=== PATIENT | female | born 1985 | race Caucasian/White ===

== ENCOUNTER 2020-08-15 01:09 | Emergency (ER) | payer MEDICAID ==
[~2020-08-15] VITALS: Ht 170.2 cm; Wt 151.5 kg
[2020-08-15 01:25] VITALS: BP 145/100
--- NOTE | 2020-08-15 02:04 | NUR ---
PT TAKEN TO BED 9
--- NOTE | 2020-08-15 02:15 | NUR ---
34 Y/O FEMALE PRESENTED TO ED C/O LOWER BACK PAIN & PAINFUL URINATION X 3 DAYS. PT STATES SHE HAS A HX OF KIDNEY STONES AND THIS PAIN IS THE SAME. PT STATES PAIN STARTED X 3 DAYS AGO BUT HAS BEEN GETTING PROGRESSIVELY WORSE. PT C/O OF PAINFUL URINATION - STATES ITS NOT A BURNING SENSATION BUT JUST PAINFUL. PT DENIES HEMATURIA , VOMITING , DIARRHEA, BODY ACHES AND CHILLS. PT ABD ROUND, SOFT AND NONTENDER. A/O X4. RR EVEN AND UNLABORED. VSS. NO ACUTE DISTRESS NOTED AT THIS TIME. ERMD MADE AWARE OF PT STATUS. PMH: KIDNEY STONE NKA
--- NOTE | 2020-08-15 02:20 | NUR ---
ERMD AT BEDSIDE FOR MEDICAL EVALUATION
--- NOTE | 2020-08-15 02:29 | NUR ---
URINE SAMPLE COLLECTED AND WALKED TO LAB.
[2020-08-15] MEDS ORDERED: KETOROLAC 60 MG/2 ML VIAL IM ONE (02:30)
[2020-08-15] MEDS ORDERED: cefTRIAXone 1,000 MG in LIDOCAINE MPF 1% 2.1 ML IM ONE (02:30)
--- NOTE | 2020-08-15 02:34 | NUR ---
PT TAKEN TO CT VIA W/C
[2020-08-15] MEDS ORDERED: LIDOCAINE MPF 1% 5 ML ONE (02:49)
[2020-08-15] MEDS ORDERED: cefTRIAXone 1,000 MG VIAL ONE (02:49)
[2020-08-15] MEDS ORDERED: ONDANSETRON 4 MG/2 ML VIAL IVP ONE (02:55)
[2020-08-15] MEDS ORDERED: NACL 0.9% 500 ML IV ONE (02:55)
--- NOTE | 2020-08-15 03:06 | NUR ---
22G IV PLACED IN LT HAND - BLOOD LABS COLLECTED AND HANDED TO LAB. Addendum: 08/15/20 at 0549 by JAYESH 22G IV PLACED IN RT HAND - BLOOD LABS COLLECTED AND HANDED TO LAB.
[2020-08-15 03:14] LABS: BASOPHILS # (AUTO) 0.1 K/uL (0.00-0.22); BASOPHILS % (AUTO) 0.7 % (0.0-2.0); EOSINOPHILS # (AUTO) 0.3 K/uL (0-0.4); EOSINOPHILS % (AUTO) 2.8 % (0.0-4.0); HEMATOCRIT 40.8 % (36-48); HEMOGLOBIN 13.5 g/dL (12.0-16.0); LYMPHOCYTES # (AUTO) 2.2 K/uL (2.5-16.5); LYMPHOCYTES % (AUTO) 21.7 % (20.5-51.1); MEAN CORPUSCULAR HEMOGLOBIN 28 pg (27-31); MEAN CORPUSCULAR HGB CONC 33 g/dL (33-37); MEAN CORPUSCULAR VOLUME 85.4 fL (80-94); MONOCYTES # (AUTO) 0.6 K/uL (0.8-1.0); MONOCYTES % (AUTO) 5.5 % (1.7-9.3); NEUTROPHILS % (AUTO) 69.3 % (42.2-75.2); PLATELET COUNT (AUTO) 300 K/uL (140-450); RED BLOOD CELL COUNT(AUTO) 4.77 MIL/uL (4.20-5.40); RED CELL DISTRIBUTION WIDTH 14.2 % (11.6-13.7); WHITE BLOOD COUNT (AUTO) 10.1 K/uL (4.8-10.8)
[2020-08-15 03:31] LABS: PROTHROMBIN TIME 9.5 secs (10.8-13.4)
[2020-08-15 03:36] LABS: ALBUMIN 3.4 g/dL (3.4-5.0); POTASSIUM 3.7 mmol/L (3.5-5.1); TOTAL BILIRUBIN 0.3 mg/dL (0.0-1.0)
[2020-08-15] MEDS ORDERED: MORPHINE SULFATE 2 MG/ML SYR IVP ONE (03:40)
[2020-08-15 03:42] LABS: ANION GAP 13.6 (8-16); CARBON DIOXIDE 27.1 mmol/L (21-32)
--- NOTE | 2020-08-15 03:45 | NUR ---
ERMD AT BEDSIDE FOR MEDICAL EVALUATION
--- NOTE | 2020-08-15 04:02 | NUR ---
yovani carlson swab collected
--- NOTE | 2020-08-15 04:07 | NUR ---
covid swab walked over to lab
[2020-08-15 04:19] LABS: APPEARANCE,URINE CLOUDY (CLEAR); BILIRUBIN,URINE NEGATIVE (NEGATIVE); BLOOD, URINE 3+ (NEGATIVE); COLOR,URINE YELLOW (YELLOW); LEUKOCYTE ESTERASE ,URINE 3+ (NEGATIVE); NITRITE, URINE POSITIVE (NEGATIVE); UGLUCOSE NEGATIVE (NEGATIVE)
[2020-08-15 04:30] LABS: RBC,URINE 20-50 /HPF (0-5); WBC,URINE TOO MANY TO COUNT /HPF (0-5)
--- NOTE | 2020-08-15 05:30 | NUR ---
PT IS LAYING DOWN SLEEPING, VISIBLE RISE AND FALL OF CHEST NOTED, BED IS LOCKED AND IN LOWEST POSITION. PT IS NOT IN ANY ACUTE DISTRESS AT THIS TIME.
--- NOTE | 2020-08-15 06:46 | NUR ---
PT SIGNED TRANSFER CONSENT, PLACED WITH TRANSFER PACKET
--- NOTE | 2020-08-15 07:11 | NUR ---
REPORT GIVEN TO KWAN WAGNER FOR TRANSFER OF CARE
--- NOTE | 2020-08-15 08:30 | NUR ---
Pt given breakfast tray, HOB elevated, bed in lowest position. VSS, will continue to monitor.
--- NOTE | 2020-08-15 09:01 | NUR ---
PATIENT WILL BE GOING TO 599 AND REPORT WILL BE GIVEN TO BARRON AT [phone]. INFORMATION GIVEN TO KWAN FIELDS.
--- NOTE | 2020-08-15 09:17 | NUR ---
Gave report to Joanna BOWENS charge nurse in [facility] for pending admission to [facility] [phone]. ETA 40-60 minutes.
--- NOTE | 2020-08-15 09:50 | NUR ---
ACCEPTING PHYSICIAN AT [place] IS ROSA SALGADO
--- NOTE | 2020-08-15 09:56 | NUR ---
PT. MOVED TO BED 11
[2020-08-15 10:02] VITALS: BP 130/76
--- NOTE | 2020-08-15 10:03 | NUR ---
Patient to be transferred to [facility] [place]. Is being transferred due to Insurance. Receiving facility has accepting physician and available space. ER physician has signed transfer form. Patient or responsible constitution party has agreed to transfer and signed form. Patient belongings inventoried and will be sent with patient. Copy of nursing notes, lab reports, EKG, Physicians Orders and X-rays to be sent with patient. Report called to KWAN Marshall at receiving facility. [facility] ambulance service has been called for transfer.
== END 2020-08-15 10:03 | disposition short-term general hospital (02) ==
LOC: MED 01:09
DX: N13.2 Hydronephrosis with renal and ureteral calculous obstruction (principal); Q62.62 Displacement of ureter; N39.0 Urinary tract infection, site not specified; F17.210 Nicotine dependence, cigarettes, uncomplicated; Z87.442 Personal history of urinary calculi
CPT/HCPCS: 36415; 74176; 80053; 81001; 81025; 85025; 85610; 85730; 87086; 87426; 96361; 96372; 96374; 96375; 99284; J0696; J1885; J2001; J2270; J2405; J7030

== ENCOUNTER 2021-06-27 23:58 | Emergency (ER) | payer MEDICAID ==
[~2021-06-27] VITALS: Ht 170.2 cm; Wt 145.1 kg
[2021-06-28 00:06] VITALS: BP 177/100
--- NOTE | 2021-06-28 00:13 | NUR ---
PT AMBULATED TO RESTROOM AND BACK TO LOBBY.
[2021-06-28 00:42] LABS: APPEARANCE,URINE CLOUDY (CLEAR); BILIRUBIN,URINE NEGATIVE (NEGATIVE); BLOOD, URINE 3+ (NEGATIVE); COLOR,URINE YELLOW (YELLOW); LEUKOCYTE ESTERASE ,URINE 2+ (NEGATIVE); NITRITE, URINE NEGATIVE (NEGATIVE); UGLUCOSE NEGATIVE (NEGATIVE)
[2021-06-28 00:47] LABS: RBC,URINE 20-50 /HPF (0-5); WBC,URINE 60-80 /HPF (0-5)
--- NOTE | 2021-06-28 02:58 | NUR ---
PT AMBULATED TO BED #7
--- NOTE | 2021-06-28 03:00 | NUR ---
COVERING PRIMARY RN FOR LUNCH RELIEF. SEE COMPLETE ASSESSMENT
[2021-06-28] MEDS: NACL 0.9% 2,000 ML IV ONE (03:34)
[2021-06-28] MEDS ORDERED: cefTRIAXone 2,000 MG VIAL ONE (03:40)
[2021-06-28] MEDS: cefTRIAXone 2,000 MG in DEXTROSE 5% 100 ML IV ONE (03:48)
[2021-06-28 03:52] LABS: ALBUMIN 3.5 g/dL (3.4-5.0); ANION GAP 14.2 (8-16); CARBON DIOXIDE 25.5 mmol/L (21-32); CREATININE 1.1 mg/dL (0.6-1.3); POTASSIUM 3.7 mmol/L (3.5-5.1); TOTAL BILIRUBIN 0.2 mg/dL (0.0-1.0)
[2021-06-28 03:56] LABS: BASOPHILS # (AUTO) 0.1 K/uL (0.00-0.22); BASOPHILS % (AUTO) 0.6 % (0.0-2.0); EOSINOPHILS # (AUTO) 0.3 K/uL (0-0.4); EOSINOPHILS % (AUTO) 2.8 % (0.0-4.0); HEMATOCRIT 43.7 % (36-48); HEMOGLOBIN 14.3 g/dL (12.0-16.0); LYMPHOCYTES # (AUTO) 2.8 K/uL (2.5-16.5); LYMPHOCYTES % (AUTO) 28.4 % (20.5-51.1); MEAN CORPUSCULAR HEMOGLOBIN 28 pg (27-31); MEAN CORPUSCULAR HGB CONC 33 g/dL (33-37); MEAN CORPUSCULAR VOLUME 86.3 fL (80-94); MONOCYTES # (AUTO) 0.7 K/uL (0.8-1.0); MONOCYTES % (AUTO) 7.1 % (1.7-9.3); NEUTROPHILS % (AUTO) 61.1 % (42.2-75.2); PLATELET COUNT (AUTO) 312 K/uL (140-450); RED BLOOD CELL COUNT(AUTO) 5.06 MIL/uL (4.20-5.40); RED CELL DISTRIBUTION WIDTH 15.1 % (11.6-13.7); WHITE BLOOD COUNT (AUTO) 9.8 K/uL (4.8-10.8)
--- NOTE | 2021-06-28 04:12 | NUR ---
patient to CT via W/C
[2021-06-28] MEDS: KETOROLAC 15 MG/ML VIAL IVP ONE (04:36)
[2021-06-28] MEDS ORDERED: ONDANSETRON 4 MG/2 ML VIAL IVP ONE (05:50)
[2021-06-28] MEDS ORDERED: MORPHINE SULFATE 4 MG/ML SYR IVP ONE (05:50)
[2021-06-28] MEDS ORDERED: CEPH-588 PO (06:33)
--- NOTE | 2021-06-28 06:39 | NUR ---
IV removed, catheter intact and site benign. Applied folded 4x4 gauze and tape to stop bleeding.
[2021-06-28 06:45] VITALS: BP 134/65
== END 2021-06-28 06:45 | disposition home or self-care (01) ==
LOC: MED 23:58
DX: N39.0 Urinary tract infection, site not specified (principal); F17.200 Nicotine dependence, unspecified, uncomplicated; Z79.899 Other long term (current) drug therapy; Z98.890 Other specified postprocedural states; Z87.442 Personal history of urinary calculi
CPT/HCPCS: 36415; 74176; 80053; 81001; 81025; 83605; 85025; 87040; 87086; 96365; 96375; 99284; J0696; J1885; J7030